=== PATIENT | female | born 1995 | race Hispanic/Latino ===

== ENCOUNTER 2016-12-12 20:19 | Emergency (ER) | payer MEDICAID ==
[2016-12-12 20:38] VITALS: BP 108/63; PULSE 87; RESP 16; TEMP 97.3; O2SAT 100
--- NOTE | 2016-12-12 20:48 | ED PDOC ---
HPI: CCC, URI, Sore Throat Time Seen by Provider: 12/12/16 20:43 Chief Complaint (Nursing): Cough, Cold, Congestion Chief Complaint (Provider): Congestion History Per: Patient History/Exam Limitations: no limitations Onset/Duration Of Symptoms: Days (x4 weeks) Current Symptoms Are (Timing): Still Present Location Of Pain: Headache Sick Contacts (Context): None Associated Symptoms: Cough, Nasal Congestion. denies: Fever, Sore Throat ( resolved x1 week ago) Severity: Mild Additional Complaint(s): Patient is a 21 year old female presenting to the ED complaining of congestion x4 weeks. Congestion is associated with cough, nose bleeds, and headache. Patient reports she had a sore throat and difficulty swallowing, but resolved x1 week ago. Denies fever. PMD: none Past Medical History Reviewed: Historical Data, Nursing Documentation, Vital Signs Vital Signs: Last Vital Signs Temp 97.3 F L 12/12/16 20:35 Pulse 87 12/12/16 20:35 Resp 16 12/12/16 20:35 BP 108/63 12/12/16 20:35 Pulse Ox 100 12/26/16 13:31 - Medical History PMH: No Chronic Diseases - Surgical History Surgical History: No Surg Hx - Family History Family History: States: No Known Family Hx - Home Medications Home Medications: Ambulatory Orders Medication Instructions Recorded Ibuprofen [Motrin] 600 mg PO Q8 PRN #20 tab 11/01/16 Amoxicillin [Amoxil 500 mg Cap] 500 mg PO BID #14 cap 12/12/16 - Allergies Allergies/Adverse Reactions: Allergies Allergy/AdvReac Type Severity Reaction Status Date / Time No Known Allergies Allergy Verified 12/12/16 20:35 Review of Systems ROS Statement: Except As Marked, All Systems Reviewed And Found Negative Constitutional: Negative for: Fever ENT: Positive for: Nose Congestion, Other (nose bleed) Respiratory: Positive for: Cough Neurological: Positive for: Headache Physical Exam - Reviewed Nursing Documentation Reviewed: Yes Vital Signs Reviewed: Yes - Physical Exam Appears: Positive for: Well, Non-toxic, No Acute Distress Head Exam: Positive for: ATRAUMATIC, NORMAL INSPECTION, NORMOCEPHALIC Skin: Positive for: Normal Color, Warm, DRY Eye Exam: Positive for: Normal appearance, EOMI ENT: Positive for: Other (mild sinus tenderness) Neck: Positive for: Normal, Painless ROM Cardiovascular/Chest: Positive for: Regular Rate, Rhythm. Negative for: Gallop , Murmur Respiratory: Positive for: Normal Breath Sounds. Negative for: Accessory Muscle Use, Rhonchi, Respiratory Distress Extremity: Positive for: Normal ROM Neurologic/Psych: Positive for: Alert, Oriented - ECG O2 Sat by Pulse Oximetry: 100 (RA) Pulse Ox Interpretation: Normal Medical Decision Making Medical Decision Making: Time: 20:45 Impression: Sinusitis Plan: UPreg Progress/Dispo Patients Upreg is negative. She will be discharged w/ Rx for Amoxicillin. Patient instructed to f/u outpatient with PMD. All questions were answered and patient is agreeable with plan. Scribe Attestation: Documented by Woody Ritchie acting as a scribe for MANJEET Mejia. Provider Attestation: All medical record entries made by the Scribe were at my direction and personally dictated by me. I have reviewed the chart and agree that the record accurately reflects my personal performance of the history, physical exam, medical decision making, and the department course for this patient. I have also personally directed, reviewed, and agree with the discharge instructions and disposition. Disposition - Clinical Impression Clinical Impression: Sinusitis - Disposition Disposition Time: 21:15 Condition: STABLE Prescriptions: Amoxicillin [Amoxil 500 mg Cap] 500 mg PO BID #14 cap Instructions: Sinusitis (ED)
== END 2016-12-12 21:08 | disposition home or self-care (01) ==
LOC: H.ER 20:19
DX: J32.9 Chronic sinusitis, unspecified (principal)

== ENCOUNTER 2018-03-19 13:58 | Emergency (ER) | payer MEDICAID, OTHER ==
[2018-03-19 14:10] VITALS: TEMP 98.4; O2SAT 100
--- NOTE | 2018-03-19 14:14 | ED PDOC ---
HPI: CCC, URI, Sore Throat Time Seen by Provider: 03/19/18 14:13 Chief Complaint (Nursing): Cough, Cold, Congestion Chief Complaint (Provider): cough History Per: Patient Additional Complaint(s): 22 year old female presents to ED with cough for 1 month, worse in the past few days. No fever or chills. No recent travel. Patient had asthma as a child but states she grew out of it. PMD: none Past Medical History Reviewed: Historical Data, Nursing Documentation, Vital Signs Vital Signs: Last Vital Signs Temp 98.4 F 03/19/18 14:08 Pulse 68 03/19/18 14:08 Resp 16 03/19/18 14:08 BP 124/78 03/19/18 14:08 Pulse Ox 100 03/19/18 14:21 - Medical History PMH: No Chronic Diseases - Surgical History Surgical History: No Surg Hx - Family History Family History: States: No Known Family Hx - Living Arrangements Living Arrangements: With Friends/Others - Social History Current smoker - smoking cessation education provided: No Alcohol: Social Drugs: Denies - Home Medications Home Medications: Ambulatory Orders Medication Instructions Recorded Ibuprofen [Motrin] 600 mg PO Q8 PRN #20 tab 11/01/16 Amoxicillin [Amoxil 500 mg Cap] 500 mg PO BID #14 cap 12/12/16 Albuterol HFA [Ventolin HFA 90 1 puff IH ASDIR #1 unit 03/19/18 mcg/actuation (8 g)] Azithromycin [Zithromax] 250 mg PO DAILY #6 tab 03/19/18 Benzonatate 200 mg PO TID PRN #20 capsule 03/19/18 - Allergies Allergies/Adverse Reactions: Allergies Allergy/AdvReac Type Severity Reaction Status Date / Time No Known Allergies Allergy Verified 12/12/16 20:35 Review of Systems ROS Statement: Except As Marked, All Systems Reviewed And Found Negative Constitutional: Negative for: Fever, Chills Respiratory: Positive for: Cough (x 1 month). Negative for: Shortness of Breath , Hemoptysis, SOB with Exertion, Sputum, Wheezing Gastrointestinal: Negative for: Nausea, Vomiting Physical Exam - Reviewed Nursing Documentation Reviewed: Yes Vital Signs Reviewed: Yes - Physical Exam Appears: Positive for: Well, Non-toxic, No Acute Distress Skin: Positive for: Normal Color. Negative for: Rash Eye Exam: Positive for: Normal appearance ENT: Positive for: Normal ENT Inspection Cardiovascular/Chest: Positive for: Regular Rate, Rhythm Respiratory: Positive for: Normal Breath Sounds. Negative for: Crackles, Rales , Rhonchi, Wheezing, Respiratory Distress Back: Positive for: Normal Inspection Extremity: Positive for: Normal ROM Neurologic/Psych: Positive for: Alert, Oriented - Laboratory Results Urine POC: Negative - ECG O2 Sat by Pulse Oximetry: 100 Pulse Ox Interpretation: Normal - Other Rad CXR X-Ray: Interpreted by Me, Viewed By Me X-Ray Interpretation: no acute finding Medical Decision Making Medical Decision Makin22 year old with cough x 1 month Plan: test CXR Patient is aware of diagnostic testing results, all questions answered. Prescriptions for Zithromax, Tessalon Perles and Ventolin inhaler given. Patient was advised to take meds as directed and follow-up with clinic in 2-3 days. Disposition - Clinical Impression Clinical Impression: Bronchitis - Patient ED Disposition Is Patient to be Admitted: No Counseled Patient/Family Regarding: Studies Performed, Diagnosis, Need For Followup, Rx Given - Disposition Referrals: [facility] [Outside] Disposition: Routine/Home Disposition Time: 14:20 Condition: STABLE Additional Instructions: Take rx meds as directed. Follow up with clinic or your primary care doctor in 2-3 days. Prescriptions: Albuterol HFA [Ventolin HFA 90 mcg/actuation (8 g)] 1 puff IH ASDIR #1 unit Azithromycin [Zithromax] 250 mg PO DAILY #6 tab Benzonatate 200 mg PO TID PRN #20 capsule PRN Reason: Cough Instructions: Acute Bronchitis Forms: [employer] (Malaysian)
[2018-03-19 15:30] VITALS: BP 122/74; PULSE 70; RESP 18
--- NOTE | 2018-03-19 16:00 | RAD ---
HISTORY: cough COMPARISON: No prior. TECHNIQUE: Chest PA and lateral FINDINGS: LUNGS: No active pulmonary disease. PLEURA: No significant pleural effusion identified. No pneumothorax apparent. CARDIOVASCULAR: Normal. OSSEOUS STRUCTURES: Old fracture of the right 7 to 9th ribs. VISUALIZED UPPER ABDOMEN: Normal. OTHER FINDINGS: None. IMPRESSION: No active disease.
== END 2018-03-19 15:21 | disposition home or self-care (01) ==
LOC: H.ER 13:58
DX: J40 Bronchitis, not specified as acute or chronic (principal)